=== PATIENT | female | born 1995 | race Caucasian/White ===

== ENCOUNTER 2017-04-22 23:55 | Emergency (ER) | payer OTHER ==
[~2017-04-22] VITALS: Ht 157.5 cm; Wt 59.5 kg
[2017-04-23 00:14] VITALS: BP 141/56
--- NOTE | 2017-04-23 00:19 | NUR ---
PT TAKEN TO BED 4
--- NOTE | 2017-04-23 00:21 | NUR ---
Patient being evaluated by physician at bedside.
[2017-04-23] MEDS ORDERED: NEOMYCIN/POLYMYXIN/BACITRACIN 0.9 GM/1 PKT TP ONE (00:35)
--- NOTE | 2017-04-23 00:57 | NUR ---
Patient appears to be resting comfortably in bed. Vital Signs within normal limits. Respirations even and unlabored.
[2017-04-23 01:37] VITALS: BP 132/68
== END 2017-04-23 01:36 | disposition home or self-care (01) ==
LOC: MED 23:55
DX: S91.311A Laceration without foreign body, right foot, initial encounter (principal); W23.0XXA Caught, crushed, jammed, or pinched between moving objects, initial encounter; Y93.89 Activity, other specified; Y92.39 Other specified sports and athletic area as the place of occurrence of the external cause; Y99.8 Other external cause status
CPT/HCPCS: 90471; 90715; 99283